=== PATIENT | female | born 1940 | race African-American/Black ===

== ENCOUNTER 2018-02-12 23:26 | Emergency (ER) | payer OTHER ==
[~2018-02-12] VITALS: Ht 162.6 cm; Wt 64.0 kg
[2018-02-13] MEDS ORDERED: ASPIRIN 81MG TABLET PO ONE (01:30)
[2018-02-13 01:51] LABS: BASOPHILS % 0.2 % (0.0-2.0); HEMOGLOBIN. 12.9 g/dL (12.0-16.0); MEAN CORPUSCULAR HEMOGLOBIN 28.7 pg (28.0-32.0); MEAN CORPUSCULAR VOLUME 86.8 fL (81.0-99.0); MEAN PLATELET VOLUME 9.2 fl (7.4-10.4); MONOCYTES % 4.9 % (2.0-8.0); NEUTROPHILS % 71.9 % (40.0-76.0); PLATELET 181 x1000/uL (130-400); RED CELL DISTRIBUTION WIDTH 13.8 % (11.6-14.6)
[2018-02-13 02:02] LABS: CHLORIDE 109 mEq/L (98-107)
[2018-02-13 04:03] VITALS: BP 138/76
== END 2018-02-13 04:05 | disposition home or self-care (01) ==
LOC: ER 23:26
DX: I10 Essential (primary) hypertension (principal); I25.2 Old myocardial infarction; Z90.710 Acquired absence of both cervix and uterus; Z90.10 Acquired absence of unspecified breast and nipple; Z88.6 Allergy status to analgesic agent
CPT/HCPCS: 36415; 71045; 80053; 83690; 83880; 84484; 85025; 93005; 99285